=== PATIENT | female | born 1955 | race American Indian/Alaskan Native ===

== ENCOUNTER 2022-06-01 07:12 | Outpatient (CLI) | payer OTHER | END 2022-06-01 07:26 | disposition home or self-care (01) | LOC: LAB 07:12 | PROVIDERS: ATTEND Urology | DX: N30.00 Acute cystitis without hematuria (principal) ==

== ENCOUNTER 2022-06-21 06:43 | Outpatient (CLI) | payer OTHER | END 2022-06-21 06:44 | disposition home or self-care (01) | LOC: LAB 06:43 | PROVIDERS: ATTEND Obstetrics & Gynecology Gynecology | DX: R97.1 Elevated cancer antigen 125 [CA 125] (principal); N94.6 Dysmenorrhea, unspecified; M94.9 Disorder of cartilage, unspecified; D39.8 Neoplasm of uncertain behavior of other specified female genital organs; D64.89 Other specified anemias; D50.8 Other iron deficiency anemias; D50.9 Iron deficiency anemia, unspecified; D64.9 Anemia, unspecified; E11.9 Type 2 diabetes mellitus without complications; Z13.1 Encounter for screening for diabetes mellitus; Z12.11 Encounter for screening for malignant neoplasm of colon; R10.9 Unspecified abdominal pain; E78.2 Mixed hyperlipidemia; E83.59 Other disorders of calcium metabolism; N92.6 Irregular menstruation, unspecified; N93.9 Abnormal uterine and vaginal bleeding, unspecified; I10 Essential (primary) hypertension; N30.00 Acute cystitis without hematuria; R30.0 Dysuria; M81.0 Age-related osteoporosis without current pathological fracture; L68.0 Hirsutism; R31.21 Asymptomatic microscopic hematuria; N60.11 Diffuse cystic mastopathy of right breast; N60.12 Diffuse cystic mastopathy of left breast ==